=== PATIENT | male | born 1990 | race Caucasian/White ===

== ENCOUNTER 2017-01-24 21:21 | Emergency (ER) | payer BC ==
[~2017-01-24] VITALS: Wt 74.0 kg
[~2017-01-24 21:21] MED LIST: ACET325T33 PO; CEPH-443 PO; IBUP-1542 PO
[2017-01-24] MEDS ORDERED: DIPHTH/TET/ACEL PERTUSS (ADULT) 0.5 ML VIAL IM* ONE (23:00)
[2017-01-24] MEDS ORDERED: IBUPROFEN 600 MG TAB PO ONE (23:00)
--- NOTE | 2017-01-24 23:05 | ERD ---
ER Documentation Chief Complaint Date/Time DATE: 01/24/17 TIME: 22:58 Chief Complaint Trimming tree branch fell on him at home HPI This 26-year-old male patient presents to emergency department today for evaluation of head injury. he reportedly was trimming branches in his tree when a 20' x 4" branch fell vertically down hitting him in the head and across forehead and right side of orbit. Patient denies loss of consciousness, reports he did not fall out of the tree, denies dizziness, nausea, vomiting, change in behavior. Patient denies any cervical tenderness or muscular pain. ROS All systems reviewed and are negative except as per history of present illness. Medications Home Meds Active Scripts Ibuprofen* (Motrin*) 600 Mg Tab, 600 MG PO Q6, #30 TAB Prov:GILBERT CROWDER 01/24/17 Acetaminophen* (Tylenol*) 325 Mg Tablet, 2 TAB PO Q8 Y for PAIN AND OR ELEVATED TEMP, #20 TAB Prov:COLE BORJA PA-C 01/17/16 Ibuprofen* (Motrin*) 600 Mg Tab, 600 MG PO Q6, #30 TAB Prov:COLE BORJA PA-C 01/17/16 Cephalexin* (Keflex*) 500 Mg Capsule, 500 MG PO QID for 5 Days, CAP Prov:COLE BORJA PA-C 01/21/15 Allergies Allergies: Coded Allergies: No Known Allergy (Unverified , 01/17/16) PMhx/Soc Medical and Surgical Hx: pt denies Medical Hx, pt denies Surgical Hx Hx Alcohol Use: No Hx Substance Use: No Hx Tobacco Use: Yes (3-4 cigs/ day) Smoking Status: Current every day smoker Physical Exam Vitals Vitals stable, triage notes reviewed Physical Exam Const: Well-nourished well-hydrated well-appearing no acute distress Head: Forehead and right orbit abrasion Eyes: Normal Conjunctiva, PERRLA, EOMI ENT: Bilateral tympanic membranes obstructed with cerumen Neck: No cervical point tenderness over bony prominence, no paraspinal tenderness, full range of motion with rotation, lateral bending flexion and extension Resp: Cardio: Abd: Skin: Superficial abrasion on forehead, above right eyebrow, and right periorbital bone. No open lacerations, no foreign body, no erythema or hematoma Back: Ext: Neur: Neuro: M/S: Alert and oriented Face: EOMI, face and pharynx with normal sensation and function Motor: Normal strength throughout Sensation: Normal sensation throughout Speech: Normal Cerebel: Normal coordination Normal gait Normal finger to nose DTR: Psych: Normal Mood and Affect Results 24 hrs Current Medications Medications (Trade) Dose Ordered Sig/Shalini Route PRN Reason Start Time Stop Time Status Last Admin Dose Admin Diphtheria/ Tetanus/Acell Pertussis (Adacel) 0.5 ml ONCE ONCE IM* 01/24/17 23:00 01/24/17 23:01 DC 01/24/17 22:47 Ibuprofen (Motrin) 600 mg ONCE ONCE PO 01/24/17 23:00 01/24/17 23:01 DC 01/24/17 22:47 Procedures/MDM 26-year-old male patient presents to emergency department for head injury. Patient reports that he was trimming his trees when the branch of breath him fell vertically hitting the side of his head. Patient reports that he did not fall out of a tree, did not lose consciousness, denies any nausea vomiting or change in behavior. Patient has her head and right orbital abrasion requiring no suturing. Wound care provided. Tetanus updated, and pain treated with ibuprofen plan to discharge patient home with instruction to use Neosporin on the wounds, troponin 100 mg 1 tab p.o. every 6 hours as needed for pain. Follow-up with primary care physician if symptoms fail to improve as anticipated , return to emergency department for any change in mentation, nausea, vomiting, change in vision or behavior. Patient is stable with no new complaints during ER course, clinically there is no current evidence to suggest meningitis, scalp laceration, subdural hematoma, intracranial bleed or any other emergent condition appearing to require further evaluation or hospitalization. I feel the patient is stable for discharge at this time. I have discussed results, examination findings, the treatment plan with the patient and family present prior to discharge. Indications for emergent reevaluation, side effects of medication were also discussed. All questions were answered. Patient verbalizes understanding and agrees with plan of care. Departure Diagnosis: Primary Impression: Head contusion Encounter type: initial encounter Contusion of head detail: unspecified part of head Qualified Code: S00.93XA - Contusion of head, unspecified part of head, initial encounter Condition: Good Patient Instructions: Concussion Referrals: [facility] Additional Instructions: Thank you for for coming to [facility] for your care today. Please ask your nurse or provider if you have questions about your care today and do not leave until all your questions have been answered. Please use any medications given as directed and follow-up with your doctor (or the doctor you were referred to) in the next 2-3 days. If you do not have a primary care doctor you may follow up at the [facility] [place] (listed below). You may also use motrin and tylenol as needed for fever and/or pain unless instructed otherwise by your provider or nurse. Indications for more urgent follow-up have been discussed, but you may return to the Emergency Department at ANY time for any worrisome or worsening symptoms. If you have abdominal pain, please know that no test or exam you received is perfect and you should follow up within 8 hours for continued pain. If you had any imaging studies today, such as an X-Ray or CT Scan, these studies will be reviewed later by a radiologist. You will be called if there are important findings that were not identified today, so make sure the contact information you provided at registration is correct. If you received any narcotic pain control medicine today, such as Vicodin, Morphine or Dilaudid, your coordination and judgment may be affected for a number of hours. Please do not drive or operate heavy machinery, and you may want someone to assist you at home. If you were given a prescription for narcotic medication, be aware that it is very addictive- use sparingly and only if necessary. GILBERT CROWDER Jan 24, 2017 23:05
[2017-01-24] MEDS ORDERED: IBUP-1542 PO (23:06)
== END 2017-01-24 23:17 | disposition home or self-care (01) ==
LOC: FTE 21:21
DX: S00.93XA Contusion of unspecified part of head, initial encounter (principal); F17.210 Nicotine dependence, cigarettes, uncomplicated; W20.8XXA Other cause of strike by thrown, projected or falling object, initial encounter; Y92.009 Unspecified place in unspecified non-institutional (private) residence as the place of occurrence of the external cause; Z23 Encounter for immunization
CPT/HCPCS: 90471